=== PATIENT | female | born 1970 | race American Indian/Alaskan Native ===

== ENCOUNTER 2020-08-25 13:18 | Outpatient (CLI) | payer OTHER ==
--- NOTE | 2020-08-26 08:04 | Mammography Report ---
BILATERAL DIGITAL SCREENING MAMMOGRAM WITH CAD HISTORY: SCREENING MAMMO TECHNIQUE: Routine digital mammographic imaging performed. This examination was interpreted with th e benefit of Computer-aided Detection analysis. COMPARISON: None currently available, although the patient reports reports prior mammograms at an out side facility. These will be requested. FINDINGS: Breast Density: heterogeneously dense breast parenchymal pattern which somewhat lessens the sensitivi ty of the evaluation. Digital CC and MLO views demonstrate no suspicious findings within the left breast. There is an asym metry in the right lateral anterior breast. This is seen on the cc view only. IMPRESSION: Right lateral anterior breast asymmetry. Comparison to prior outside mammograms is recommended to as sess stability. We will request prior mammograms and an addendum will be added to this report once th ey are received. BIRADS 0-Incomplete: Needs additional imaging evaluation NOTE: WE WILL RECALL THE PATIENT FOR THIS ADDITIONAL EVALUATION. FURTHER INFORMATION: According to the [employer], yearly mammograms are recommend ed starting at age 40 and continuing as long as a woman is in good health. Clinical Breast Exams shou ld be part of a periodic health exam-about every 3 years for women in their 20s and 30s and every yea r for women 40 and over. Breast self exam is an option for women starting in their 20s. Any breast ch arsh noted on a breast self exam should be reported promptly to the patient's healthcare provider. Br east MRI is recommended for women with an approximately 20-25% or greater lifetime risk of breast can cer, including women with a strong family history of breast or ovarian cancer and women who have been treated for Hodgkin's disease. A negative Mammography report should not discourage follow up or biopsy of a clinically significant f inding and/or abnormality. Dense breast tissue may obscure small neoplasms. The patient will be entered into a reminder system with a target due date for the next screening mamm ogram. Signer Name: Niraj Maki MD Signed: 08/26/2020 8:03 AM Workstation Name: [id number]
== END 2020-08-25 13:19 | disposition home or self-care (01) ==
LOC: SPVWC 13:18
PROVIDERS: ATTEND Family Medicine
DX: Z12.31 Encounter for screening mammogram for malignant neoplasm of breast (principal)
CPT/HCPCS: 77067